=== PATIENT | male | born 1965 | race Caucasian/White ===

== ENCOUNTER 2016-08-12 23:27 | Emergency (ER) | payer BC ==
[2016-08-12 23:42] VITALS: BP 142/83
[2016-08-13] MEDS ORDERED: Dextrose 5%-0.45% NaCl 1,000 ML IV SCH
--- NOTE | 2016-08-13 00:05 | EDM.PDOC ---
ED HPI GENERAL MEDICAL PROBLEM - General Chief Complaint: Diabetic Complaint Stated Complaint: MEDICAL [facility] Time Seen by Provider: 08/13/16 00:01 Source of Information: Reports: Patient, Family History Limitations: Reports: No Limitations - History of Present Illness INITIAL COMMENTS - FREE TEXT/NARRATIVE: pt was drinking beer all day and did not take his usual bolus of insulin. He ended up with a bs of nearly 500. He took 28 units at around 10. He was feeling tired earlier in the day. Onset: Gradual Duration: Hour(s):, Other ( bs was not covered with his usual bolus of insulin. ) Associated Symptoms: Reports: No Other Symptoms - Related Data Allergies Allergy/AdvReac Type Severity Reaction Status Date / Time No Known Allergies Allergy Verified 08/12/16 23:42 Home Meds: Home Meds Losartan Potassium [Cozaar] 50 mg PO 08/12/16 [History] atorvaSTATin [Lipitor] 10 mg PO BEDTIME 08/12/16 [History] Past Medical History Cardiovascular History: Reports: High Cholesterol, Hypertension Endocrine/Metabolic History: Reports: Diabetes, Type I Social & Family History - Caffeine Use Caffeine Use: Reports: Coffee - Recreational Drug Use Recreational Drug Use: No ED ROS GENERAL - Review of Systems Review Of Systems: See Below Constitutional: Reports: No Symptoms HEENT: Reports: No Symptoms Respiratory: Reports: No Symptoms Cardiovascular: Reports: No Symptoms Endocrine: Reports: High Glucose GI/Abdominal: Reports: No Symptoms : Reports: No Symptoms Musculoskeletal: Reports: Hand Pain Skin: Reports: No Symptoms ED EXAM GENERAL NO PERIP PULSE - Physical Exam Exam: See Below Text/Narrative:: Pt arrived because he had a high bs and he took 28 unit of insulin o cover the high sugar. He had been drinking beer all day. Exam Limited By: No Limitations General Appearance: Alert, Lethargic, Other ( When the ambulace got there he was somewhat lethargic, ) Ears: Normal TMs Nose: Normal Inspection Throat/Mouth: Normal Inspection Head: Atraumatic Neck: Normal Inspection Respiratory/Chest: No Respiratory Distress Cardiovascular: Normal Peripheral Pulses GI/Abdominal: Soft, Non-Tender (Male) Exam: Deferred Rectal (Males) Exam: Deferred Back Exam: Normal Inspection Extremities: Normal Inspection Neurological: Alert, Oriented, Normal Cognition Course - Vital Signs Last Recorded V/S: Last Vital Signs Temp 35.7 C 08/12/16 23:37 Pulse 69 07/08/17 23:37 Resp 18 08/12/16 23:37 BP 142/83 H 08/12/16 23:37 Pulse Ox 100 08/12/16 23:37 - Orders/Labs/Meds Orders: Active Orders 24 hr Category Date Time Status UA W/MICROSCOPIC [URIN] Urgent Lab 08/12/16 23:51 Uncollected Dextrose 5%-0.45% NaCl [Dextrose 5%-1/2 NS] 1,000 ml Med 08/13/16 00:00 Active IV ASDIRECTED Medication Orders Dextrose/Sodium Chloride (Dextrose 5%-1/2 Ns) 1,000 mls @ 75 mls/hr IV ASDIRECTED DIANE Last Admin: 08/13/16 00:16 Dose: 75 mls/hr Labs: Laboratory Tests 08/12/16 08/12/16 Range/Units 00:03 23:51 WBC 10.3 (4.5-11.0) K/uL RBC 4.43 (4.30-5.90) M/uL Hgb 13.9 (12.0-15.0) g/dL Hct 40.6 (40.0-54.0) % MCV 92 (80-98) fL MCH 31 (27-31) pg MCHC 34 (32-36) % Plt Count 237 (150-400) K/uL Neut % (Auto) 74 H (36-66) % Lymph % (Auto) 18 L (24-44) % [place] % (Auto) 7 H (2-6) % Eos % (Auto) 1 L (2-4) % Baso % (Auto) 0 (0-1) % Sodium 143 (140-148) mmol/L Potassium 3.4 L (3.6-5.2) mmol/L Chloride 104 (100-108) mmol/L Carbon Dioxide 31 (21-32) mmol/L Anion Gap 11.4 (5.0-14.0) mmol/L BUN 10 (7-18) mg/dL Creatinine 1.3 (0.8-1.3) mg/dL Est Cr Clr Drug Dosing 65.71 mL/min Estimated GFR (MDRD) 58 L (>60) Glucose 75 (74-106) mg/dL Calcium 8.8 (8.5-10.1) mg/dL Total Bilirubin 0.3 (0.2-1.0) mg/dL AST 33 (15-37) U/L ALT 34 (12-78) U/L Alkaline Phosphatase 54 (46-116) U/L Total Protein 6.9 (6.4-8.2) g/dL Albumin 3.7 (3.4-5.0) g/dL Globulin 3.2 (2.3-3.5) g/dL Albumin/Globulin Ratio 1.2 (1.2-2.2) Meds: Medications Generic Name Dose Route Start Last Admin Trade Name Kate PRN Reason Stop Dose Admin Dextrose/Sodium Chloride 1,000 mls @ 75 mls/hr 08/13/16 00:00 08/13/16 00:16 Dextrose 5%-1/2 Ns IV 75 mls/hr ASDIRECTED DIANE Administration - Re-Assessments/Exams Free Text/Narrative Re-Assessment/Exam: 08/13/16 02:27 pt has continued to maintain a sugar in th 60s. His last sugar was 90. He has eaten alot and he has had d5/ns running. He really wants to go home nd his is willing to monitor him about every hour for awhile. Departure - Departure Time of Disposition: 02:28 Disposition: Home, Self-Care 01 Condition: Fair Clinical Impression: Hyperglycemia - Discharge Information Forms: ED Department Discharge Care Plan Goals: pt took an excessive amount of insulin and bs hs remained low-- watch bs hourly for the next 3-4 hours. Do not use insulin pump until l bs is more stable. - My Orders Last 24 Hours: My Active Orders 08/12/16 23:51 UA W/MICROSCOPIC [URIN] Urgent 08/13/16 00:00 Dextrose 5%-0.45% NaCl [Dextrose 5%-1/2 NS] 1,000 ml IV ASDIRECTED - Assessment/Plan Last 24 Hours: My Active Orders 08/12/16 23:51 UA W/MICROSCOPIC [URIN] Urgent 08/13/16 00:00 Dextrose 5%-0.45% NaCl [Dextrose 5%-1/2 NS] 1,000 ml IV ASDIRECTED
== END 2016-08-13 02:37 | disposition home or self-care (01) ==
LOC: JP.ED 23:27
DX: E10.65 Type 1 diabetes mellitus with hyperglycemia (principal); E78.00 Pure hypercholesterolemia, unspecified; I10 Essential (primary) hypertension
CPT/HCPCS: 36415; 80053; 82962; 85025; 99284